=== PATIENT | female | born 1935 | race Caucasian/White ===

== ENCOUNTER 2016-07-25 16:10 | Inpatient (IN) | payer MEDICARE, MEDICAID ==
[~2016-07-25] VITALS: Ht 160 cm; Wt 63.0 kg
[~2016-07-25 16:10] MED LIST: BACITRACIN 50,000 UNITS INJ IRRIG ONE; FENTANYL 100 MCG/2 ML AMP IV ONE; GLYCOPYRROLATE 0.2 MG/ML VIAL IV ONE; LIDOCAINE 2% SYR 5 ML IV ONE; NEOSTIGMINE 10 MG/10 ML VIAL IV ONE; PROPOFOL 20 ML VIAL IV ONE; ROCURONIUM 50 MG VIAL IV ONE
[2016-07-25] MEDS ORDERED: BISACODYL EC 5 MG TAB PO PRN (16:15)
[2016-07-25] MEDS ORDERED: ONDANSETRON 4 MG VIAL IV PRN (16:15)
[2016-07-25] MEDS ORDERED: ACETAMINOPHEN 325 MG TAB PO PRN (16:15)
[2016-07-25] MEDS ORDERED: MORPHINE 2 MG/ML SYR IV PRN (16:15)
[2016-07-25] MEDS ORDERED: MAG HYDROX 30 ML UDC PO PRN (16:15)
[2016-07-25] MEDS ORDERED: BISACODYL 10 MG SUPP RECTAL PRN (16:15)
[2016-07-25] MEDS ORDERED: SALINE FLUSH 10 ML FLUSH PRN (16:15)
[2016-07-25] MEDS: DUONEB INH SCH ×2 (19:00→23:41)
[2016-07-25 21:09] VITALS: BP_SYST 159; RESP 20; TEMP 98
[2016-07-25] MEDS: SODIUM CHLORIDE 0.9% FLUSH BAG 500 ML IV SCH (21:27)
[2016-07-25] MEDS: SALINE FLUSH 10 ML FLUSH SCH (21:28)
[2016-07-25 22:52] VITALS: Ht 160 cm; Wt 63.0 kg
[2016-07-25 23:26] VITALS: BP_SYST 152; RESP 16; TEMP 98.1
[2016-07-25 23:42] VITALS: RESP 18
[2016-07-26] MEDS: PANTOPRAZOLE 40 MG VIAL IV SCH ×3 (02:03→19:38)
[2016-07-26] MEDS: MORPHINE 4 MG/ML SYR IV PRN ×6 (02:04→23:52)
[2016-07-26] MEDS: DUONEB INH SCH ×6 (02:31→23:37)
[2016-07-26 03:15] VITALS: BP_SYST 138; RESP 16; TEMP 98.3
[2016-07-26 07:29] VITALS: BP_SYST 136; RESP 16; TEMP 98.2
[2016-07-26] MEDS ORDERED: LACT RINGERS 1,000 ML IV SCH (07:50)
[2016-07-26] MEDS ORDERED: GLYCOPYRROLATE 0.2 MG/ML VIAL IV ONE (07:50)
[2016-07-26] MEDS ORDERED: MIDAZOLAM 2 MG/2 ML INJ IV ONE (07:50)
[2016-07-26] MEDS ORDERED: LIDOCAINE 1% BUFFERED 1 ML SYR INTRADERM PRN (07:50)
[2016-07-26] MEDS ORDERED: DUONEB INH ONE (07:50)
[2016-07-26] MEDS: METOPROLOL TART 25 MG TAB PO SCH (08:07)
[2016-07-26] MEDS: SALINE FLUSH 10 ML FLUSH SCH ×2 (08:08→19:39)
[2016-07-26] MEDS: GABAPENTIN 300 MG CAP PO SCH ×4 (08:08→19:39)
[2016-07-26] MEDS: SUCRALFATE 1 GM TAB PO SCH ×3 (08:08→19:39)
[2016-07-26] MEDS ORDERED: CEFAZOLIN 2,000 MG in SODIUM CHLORIDE 0.9% 100 ML IV ONE (10:25)
[2016-07-26 10:44] VITALS: BP_SYST 127; RESP 16; TEMP 98.5
[2016-07-26 14:59] VITALS: BP_SYST 118; RESP 16; TEMP 97.5
[2016-07-26] MEDS: Atorvastatin 20 MG TAB PO SCH (19:39)
[2016-07-26 19:50] VITALS: BP_SYST 120; RESP 18; TEMP 98.6
[2016-07-26 23:45] VITALS: BP_SYST 135; RESP 20; TEMP 98.4
[2016-07-27] VITALS (23 sets, daily range): BP systolic 120–171; RESP 14–96; TEMP 98–99.4
[2016-07-27] MEDS: SODIUM CHLORIDE 0.9% FLUSH BAG 500 ML IV SCH (01:55)
[2016-07-27] MEDS: DUONEB INH SCH ×6 (02:00→22:44)
[2016-07-27] MEDS: DILAUDID 1 MG/ML AMP IV PRN ×6 (03:40→23:00)
[2016-07-27] MEDS: SALINE FLUSH 10 ML FLUSH SCH ×2 (08:09→19:45)
[2016-07-27] MEDS: PANTOPRAZOLE 40 MG VIAL IV SCH ×2 (08:09→20:00)
[2016-07-27] MEDS: SUCRALFATE 1 GM TAB PO SCH ×3 (09:00→20:02)
[2016-07-27] MEDS: GABAPENTIN 300 MG CAP PO SCH ×4 (09:00→20:02)
[2016-07-27] MEDS ORDERED: MISSING DOSE XX ONE (10:00)
[2016-07-27] MEDS: METOPROLOL TART 25 MG TAB PO SCH (10:33)
[2016-07-27] MEDS ORDERED: MIDAZOLAM 2 MG/2 ML INJ ONE (11:26)
[2016-07-27] MEDS ORDERED: LACT RINGERS 1,000 ML IV SCH (11:40)
[2016-07-27] MEDS ORDERED: MEPERIDINE 25 MG/ML IV PRN (13:00)
[2016-07-27] MEDS ORDERED: ONDANSETRON 4 MG VIAL IV PRN ×2 (13:00→13:15)
[2016-07-27] MEDS ORDERED: MORPHINE 4 MG/ML SYR IV PRN (13:00)
[2016-07-27] MEDS ORDERED: OXYCODONE 5 MG TAB PO PRN (13:00)
[2016-07-27] MEDS ORDERED: MORPHINE 2 MG/ML SYR IV PRN ×2 (13:00→13:15)
[2016-07-27] MEDS: CEFAZOLIN 2,000 MG in SODIUM CHLORIDE 0.9% 100 ML IV SCH (17:31)
[2016-07-27] MEDS: Atorvastatin 20 MG TAB PO SCH (20:02)
[2016-07-28] VITALS (7 sets, daily range): BP systolic 120–150; RESP 16–26; TEMP 98.1–100.8
[2016-07-28] MEDS: CEFAZOLIN 2,000 MG in SODIUM CHLORIDE 0.9% 100 ML IV SCH ×3 (00:35→12:17)
[2016-07-28] MEDS: DUONEB INH SCH ×6 (02:13→23:00)
[2016-07-28] MEDS: DILAUDID 1 MG/ML AMP IV PRN (03:11)
[2016-07-28] MEDS: SODIUM CHLORIDE 0.9% FLUSH BAG 500 ML IV SCH (05:16)
[2016-07-28] MEDS: GABAPENTIN 300 MG CAP PO SCH ×4 (09:18→20:27)
[2016-07-28] MEDS: PANTOPRAZOLE 40 MG VIAL IV SCH ×2 (09:18→20:27)
[2016-07-28] MEDS: SALINE FLUSH 10 ML FLUSH SCH ×2 (09:18→20:27)
[2016-07-28] MEDS: METOPROLOL TART 25 MG TAB PO SCH (09:18)
[2016-07-28] MEDS: SUCRALFATE 1 GM TAB PO SCH ×3 (09:18→20:27)
[2016-07-28] MEDS: Atorvastatin 20 MG TAB PO SCH (20:27)
[2016-07-29 01:40] VITALS: BP_SYST 150; RESP 16; TEMP 99
[2016-07-29] MEDS: DUONEB INH SCH ×4 (02:26→15:14)
[2016-07-29] MEDS: SODIUM CHLORIDE 0.9% FLUSH BAG 500 ML IV SCH (06:00)
[2016-07-29] MEDS: PANTOPRAZOLE 40 MG TAB PO SCH ×2 (06:40→16:15)
[2016-07-29] MEDS: SUCRALFATE 1 GM TAB PO SCH ×2 (06:57→16:15)
[2016-07-29 07:17] VITALS: BP_SYST 133; RESP 20; TEMP 98.4
[2016-07-29] MEDS: SALINE FLUSH 10 ML FLUSH SCH (08:00)
[2016-07-29] MEDS: GABAPENTIN 300 MG CAP PO SCH ×2 (09:49→13:57)
[2016-07-29] MEDS: METOPROLOL TART 25 MG TAB PO SCH (09:50)
[2016-07-29 11:25] VITALS: BP_SYST 152; RESP 20; TEMP 98.6
[2016-07-29 13:34] VITALS: BP_SYST 152; RESP 20; TEMP 98.6
[2016-07-29 13:40] VITALS: BP_SYST 152; RESP 20; TEMP 98.6
[2016-07-29] MEDS ORDERED: SUCRALFATE 1 GM TAB PO SCH (21:00)
== END 2016-07-29 16:37 | DRG 481 ==
LOC: ENRESERVDT → ENRESERVTM → DELPENDDIS 20:53 → 5THW 20:53 → ENPENDDIS 20:53 → 2NO 07-27 09:00
PROVIDERS: ADMIT Family Medicine; ATTEND Family Medicine
PROC: 0QS704Z Reposition Left Upper Femur with Internal Fixation Device, Open Approach (ICD-10-PCS; principal; 2016-07-27 12:18)
DX: S72.002A Fracture of unspecified part of neck of left femur, initial encounter for closed fracture (principal); J96.10 Chronic respiratory failure, unspecified whether with hypoxia or hypercapnia; J44.9 Chronic obstructive pulmonary disease, unspecified; W19.XXXA Unspecified fall, initial encounter; Y92.239 Unspecified place in hospital as the place of occurrence of the external cause; Z82.49 Family history of ischemic heart disease and other diseases of the circulatory system; Z79.82 Long term (current) use of aspirin; Z79.51 Long term (current) use of inhaled steroids; F17.200 Nicotine dependence, unspecified, uncomplicated; I10 Essential (primary) hypertension; I25.10 Atherosclerotic heart disease of native coronary artery without angina pectoris; G89.4 Chronic pain syndrome; D64.9 Anemia, unspecified
CPT/HCPCS: 71010; 76000; 80053; 82553; 84484; 85025; 85379; 85610; 85730; 93005; 94640; 94799; 99222; 99232; 99233; 99239